=== PATIENT | male | born 1985 | race Caucasian/White ===

== ENCOUNTER → 2021-09-03 | Outpatient (CLI) | payer SELFPAY ==
[2021-09-03 19:56] LABS: BASO # 0.05 K/mm3 (0.02-0.10); EOS # 0.34 K/mm3 (0.04-0.40); EOS % 3.6 % (0.0-4.0); HEMATOCRIT 40.9 % (42.0-52.0); HEMOGLOBIN 14.4 g/dL (13.5-18.0); LYMPH# 2.93 K/mm3 (1.50-4.00); MEAN CELL VOLUME 88 fl (78-100); MEAN CORPUSCULAR HEMOGLOBIN 31 pg (27-31); MEAN CORPUSCULAR HGB CONC 35 g/dL (33-37); MONO # 1.17 K/mm3 (0.20-0.80); NEU # 4.97 K/mm3 (1.40-6.50); PLATELET COUNT 230 K/mm3 (130-400); RED BLOOD COUNT 4.66 M/mm3 (4.20-5.60); RED CELL DISTRIBUTION WIDTH 12.8 % (11.5-14.5); WHITE BLOOD COUNT 9.5 K/mm3 (4.8-10.8)
[2021-09-03 20:04] LABS: ALBUMIN 4.6 g/dL (3.5-5.0)
[2021-09-03 20:06] LABS: CALCIUM 9.6 mg/dL (8.3-10.5)
[2021-09-03 20:07] LABS: TOTAL PROTEIN 8.1 g/dL (6.4-8.3)
[2021-09-03 20:09] LABS: TOTAL BILIRUBIN 0.5 mg/dL (0.2-1.2)
[2021-09-03 20:31] LABS: D-DIMER 0.43 mg/L FEU (0.15-0.50)
== END ==
LOC: LAB 19:28
PROVIDERS: Nurse Practitioner
DX: M25.572 Pain in left ankle and joints of left foot (principal); Z98.890 Other specified postprocedural states

== ENCOUNTER 2022-04-07 14:38 | Emergency (ER) | payer BC ==
[2022-04-07 15:25] VITALS: BP 142/91
== END 2022-04-07 15:25 | disposition home or self-care (01) ==
LOC: ED 14:38
DX: H10.9 Unspecified conjunctivitis (principal)

== ENCOUNTER → 2023-08-07 | Outpatient (CLI) | payer BC ==
[~2023-08-07] MED LIST: PHENERGAN 25 TA25 MG PO; ZOFRAN ODT4 MG PO
[2023-08-07 16:33] LABS: URINE APPEARANCE CLEAR (CLEAR); URINE COLOR YELLOW (YELLOW)
[2023-08-07 16:34] LABS: URINE BILIRUBIN NEGATIVE (NEGATIVE); URINE BLOOD 1+ (NEGATIVE); URINE GLUCOSE NEGATIVE (NEGATIVE); URINE KETONE NEGATIVE (NEGATIVE); URINE LEUKOCYTE ESTERASE 1+ (NEGATIVE); URINE NITRATE NEGATIVE (NEGATIVE); URINE PROTEIN(semi-quant) NEGATIVE (NEGATIVE)
== END ==
LOC: LAB 16:00
PROVIDERS: Family Medicine
DX: R31.9 Hematuria, unspecified (principal)

== ENCOUNTER → 2023-09-12 | Outpatient (CLI) | payer BC | LOC: RAD 09:37 | DX: R05.3 Chronic cough (principal) ==